=== PATIENT | female | born 1950 | race Caucasian/White ===

== ENCOUNTER → 2023-05-04 13:10 | Outpatient (BNVA) | payer MEDICARE, OTHER, SELFPAY | PROVIDERS: PCP Family Medicine; Visit Provider Dermatology | DX: D18.01 Hemangioma of skin and subcutaneous tissue (principal); L82.1 Other seborrheic keratosis; L81.4 Other melanin hyperpigmentation; L91.8 Other hypertrophic disorders of the skin; L53.8 Other specified erythematous conditions | CPT/HCPCS: 11200; 99213 ==